=== PATIENT | female | born 1985 | race African-American/Black ===

== ENCOUNTER 2019-01-15 11:21 | Emergency (ER) | payer BC ==
[~2019-01-15] VITALS: Ht 177.8 cm; Wt 85.5 kg
[2019-01-15 11:51] VITALS: Ht 177.8 cm; Wt 85.5 kg
[2019-01-15] MEDS ORDERED: NITR-58 PO (15:22)
--- NOTE | 2019-01-15 15:33 | ERD ---
ER Documentation Chief Complaint Chief Complaint abdominal pain and vomiting this morning, dysuria x 5 days HPI 33-year-old female presents for vaginal discomfort and dysuria x5 days. She had some nausea this morning and vomiting in the morning. She states that she was intimate with her partner few days ago, customized vaginal area and developed the pain that she is feeling now subsequently. She denies any fevers. She admits to some mild cramping in the pelvic area. Denies vaginal bleeding. Denies blood in her urine. No significant past history. No other modifying factors noted, no treatments tried at home. ROS All systems reviewed and are negative except as per history of present illness. Medications Home Meds Active Scripts Nitrofurantoin Monohyd Macrocr* (Macrobid*) 100 Mg Capsr, 100 MG PO BID for dysuria for 5 Days, #10 CAP Prov:SEJAL MELARA DO 01/15/19 Allergies Allergies: Coded Allergies: Iodine (Verified Allergy, 01/15/19) PMhx/Soc Medical and Surgical Hx: pt denies Medical Hx, pt denies Surgical Hx Hx Psychiatric Problems: No Hx Miscellaneous Medical Probl: No Hx Alcohol Use: No Hx Substance Use: No Hx Tobacco Use: No Smoking Status: Never smoker FmHx Family History: No coronary disease Physical Exam Vitals Vital Signs Date Temp Pulse Resp B/P (MAP) Pulse Ox O2 O2 Flow FiO2 Time Delivery Rate 01/15/19 97.8 80 18 135/72 97 11:51 (93) Physical Exam Const: No acute distress Resp: Clear to auscultation bilaterally Cardio: Regular rate and rhythm, no murmurs Abd: Soft, non tender, non distended. Normal bowel sounds Skin: No petechiae or rashes Back: No midline or flank tenderness Ext: No cyanosis, or edema Neur: Awake and alert Psych: Normal Mood and Affect Results 24 hrs Laboratory Tests Test 01/15/19 14:40 01/15/19 14:41 Urine Color YELLOW Urine Clarity CLEAR Urine pH 7.0 Urine Specific [place] 1.019 Urine Ketones NEGATIVE mg/dL Urine Nitrite NEGATIVE mg/dL Urine Bilirubin NEGATIVE mg/dL Urine Urobilinogen NEGATIVE mg/dL Urine Leukocyte Esterase NEGATIVE Rafi/ul Urine Hemoglobin NEGATIVE mg/dL Urine Glucose NEGATIVE mg/dL Urine Total Protein NEGATIVE mg/dl POC Beta HCG, Qualitative POSITIVE Procedures/MDM Medical Decision Making: Differential diagnosis includes but not limited to acute gastritis, acute gastr oenteritis, appendicitis, cholecystitis, pancreatitis, nephrolithiasis, pyelonephritis, urinary tract infection Patient appeared well on physical exam. Nontoxic appearing. ED course: UA was negative for infection, there is no hematuria Urine test was positive Patient was informed of her urine result. Advised to follow-up with NURSE DISCHARGE PLANNER. Given the patient has dysuria, a urine culture was done and patient will be treated empirically for a urinary tract infection and Prescription(s): Patient given prescription for Macrobid. Patient advised to follow up with PCP in 1-2 days. Patient advised to return to ED for new or worsening symptoms. Patient stable on discharge from the ED. Disclaimer: Inadvertent spelling and grammatical errors are likely due to EHR/dictation software use and do not reflect on the overall quality of patient care. Also, please note that the electronic time recorded on this note does not necessarily reflect the actual time of the patient encounter. Departure Diagnosis: Primary Impression: Weeks of gestation: unspecified Qualified Codes: Z34.90 - Encounter for supervision of normal , unspecified, unspecified trimester Additional Impression: Dysuria Condition: Fair Patient Instructions: Dysuria, : Planning Your Exercise Routine Additional Instructions: Call your primary care doctor TOMORROW for an appointment during the next 1-2 days.See the doctor sooner or return here if your condition worsens before your appointment time. Follow up with rn lvn SEJAL MELARA DO January 15, 2019 15:33
[2019-01-15 16:02] VITALS: BP 126/76; PULSE 78; RESP 16
== END 2019-01-15 16:03 | disposition home or self-care (01) ==
LOC: FTE 11:21
DX: O23.40 Unspecified infection of urinary tract in pregnancy, unspecified trimester (principal); R10.2 Pelvic and perineal pain; Z34.90 Encounter for supervision of normal pregnancy, unspecified, unspecified trimester
CPT/HCPCS: 81003; 81025; 87086; Z7502; 99283

== ENCOUNTER 2019-01-22 10:35 | Emergency (ER) | payer BC ==
[~2019-01-22] VITALS: Ht 177.8 cm; Wt 87.0 kg
[~2019-01-22 10:35] MED LIST: NITR-58 PO
[2019-01-22 10:45] VITALS: BP 141/76; PULSE 68; RESP 18; Ht 177.8 cm; Wt 87.0 kg
[2019-01-22] MEDS ORDERED: ACETAMINOPHEN 325 MG TAB PO STA (10:57)
[2019-01-22] MEDS ORDERED: ACET500C5 PO (13:08)
--- NOTE | 2019-01-22 13:14 | ERD ---
ER Documentation Chief Complaint Chief Complaint vag bleed since yesterday , 3 weeks preg HPI 34-year-old female patient with no significant past medical history presents to the ED complaining of vaginal bleeding in her . Patient is a A4. States that her last menstruation was on December 14, 2018. Denies any chest pain, shortness of breath, nausea, vomiting, diarrhea, neck stiffness. Reports that she had to change 3 pads last night due to the vaginal bleeding. Describes her abdominal pain is achy and sharp and rates it a 6 out of 10. Denies any dysuri a, urgency, frequency, hematuria. ROS All systems reviewed and are negative except as per history of present illness. Medications Home Meds Active Scripts Acetaminophen* (Tylophen*) 500 Mg Capsule, 1 CAP PO Q6H PRN for PAIN AND OR ELEVATED TEMP, #20 CAP Prov:YENIFER SAGE PA-C 01/22/19 Nitrofurantoin Monohyd Macrocr* (Macrobid*) 100 Mg Capsr, 100 MG PO BID for dysuria for 5 Days, #10 CAP Prov:SEJAL MELARA DO 01/15/19 Allergies Allergies: Coded Allergies: iodine (Verified Allergy, Unknown, 01/15/19) PMhx/Soc Hx Psychiatric Problems: No Hx Miscellaneous Medical Probl: No Hx Alcohol Use: No Hx Substance Use: No Hx Tobacco Use: No FmHx Family History: No diabetes, No coronary disease Physical Exam Vitals Vital Signs Date Temp Pulse Resp B/P (MAP) Pulse Ox O2 O2 Flow FiO2 Time Delivery Rate 01/22/19 98.2 68 18 141/76 100 10:45 (97) Physical Exam Const: Uet-[id number], well-nourished. In no acute distress. Head: Atraumatic, normocephalic Eyes: Normal Conjunctiva without injection. No purulent discharge. ENT: Normal external ear, nose. Moist oropharynx without tonsillar exudates. Non-erythematous pharynx. Uvula midline. No drooling. No trismus. Neck: No cervical midline tenderness. Full range of motion. No meningismus. No cervical lymphadenopathy. No JVD. Resp: Clear to auscultation bilaterally. No wheezing, rhonchi, rales, or crackles. No accessory muscle use. No retractions. Cardio: Regular rate and rhythm. No murmurs, rubs or gallops. Abd: Soft, slight pelvic tenderness, non distended. Normal bowel sounds. No palpable masses. No rebound tenderness. No guarding. Negative McBurney's point. Negative psoas sign. Negative obturator sign. Skin: No petechiae or rashes Back: No midline tenderness. No CVA tenderness. Ext: No cyanosis, or edema. Neur: Awake and alert. Normal gait. Normal coordination. Psych: Normal Mood and Affect Results 24 hrs Laboratory Tests Test 01/22/19 11:21 White Blood Count 5.5 10^3/ul Red Blood Count 4.07 10^6/ul Hemoglobin 12.2 g/dl Hematocrit 38.4 % Mean Corpuscular Volume 94.3 fl Mean Corpuscular Hemoglobin 30.0 pg Mean Corpuscular Hemoglobin Concent 31.8 g/dl Red Cell Distribution Width 12.6 % Platelet Count 301 10^3/UL Mean Platelet Volume 10.7 fl Immature Granulocytes % 0.200 % Neutrophils % 58.9 % Lymphocytes % 31.0 % Monocytes % 6.4 % Eosinophils % 3.1 % Basophils % 0.4 % Nucleated Red Blood Cells % 0.0 /100WBC Immature Granulocytes # 0.010 10^3/ul Neutrophils # 3.2 10^3/ul Lymphocytes # 1.7 10^3/ul Monocytes # 0.4 10^3/ul Eosinophils # 0.2 10^3/ul Basophils # 0.0 10^3/ul Nucleated Red Blood Cells # 0.0 10^3/ul Urine Color YELLOW Urine Clarity SLIGHTLY CLOUDY Urine pH 8.0 Urine Specific [place] 1.020 Urine Ketones NEGATIVE mg/dL Urine Nitrite NEGATIVE mg/dL Urine Bilirubin NEGATIVE mg/dL Urine Urobilinogen NEGATIVE mg/dL Urine Leukocyte Esterase NEGATIVE Rafi/ul Urine Microscopic RBC > 182 /HPF Urine Microscopic WBC 4 /HPF Urine Squamous Epithelial Cells FEW /HPF Urine Mucus MODERATE /HPF Urine Hemoglobin 3+ mg/dL Urine Glucose NEGATIVE mg/dL Urine Total Protein NEGATIVE mg/dl Beta HCG, Quantitative < 2.4 mIU/ml Current Medications Medications Dose Sig/Fredi Start Time Status Last (Trade) Ordered Route PRN Stop Time Admin Dose Reason Admin 650 mg ONCE STAT 01/22/19 DC 01/22/19 Acetaminophen PO 10:57 11:22 (Tylenol 01/22/19 10:59 Tab) Procedures/MDM 34-year-old female patient who is a G7, presents the ED complaining of vaginal bleeding that started last night in her . Patient was diagnosed with a positive urine 7 days ago. An ultrasound, beta-hCG, CBC, type and RH, UA was ordered to evaluate patient. CBC: No evidence of severe infection or anemia Urine: No elevation in nitrites, leukocyte esterase, 3+ hematuria. Rh: O Positive No indication for Rhogam at this time. beta Hcg: < 2.4 IMPRESSION: No intrauterine gestation visualized. Ovaries not visualized. Differential diagnosis includes early , missed or ectopic . Follow-up ultrasound and HCG levels is recommended. Patient's bleeding symptoms have stabilized while in the department. Low suspicion for symptomatic anemia, ectopic , sepsis, PID, appendicitis, ovarian torsion, tubo-ovarian abscess, surgical abdomen, or other emergent conditions. Patient was educated that there is a risk for threatened . Patient did have a positive urine 7 days ago but was noted to have a beta-hCG of less than 2.4. Differentials include miscarriage however she is instructed to follow-up with PHLEBOTOMY SPECIALIST for repeat beta hCG for confirmation. Diagnosis: Vaginal bleeding and Discharge medications: Tylenol Patient to follow up with PHLEBOTOMY SPECIALIST in 2 days for further evaluation and treatment. Patient is to return sooner to the ED for any worsening symptoms. Patient's questions were answered. Patient understood and agreed with discharge plan. Disclaimer: Inadvertent spelling and grammatical errors are likely due to EHR/dictation software use and do not reflect on the overall quality of patient care. Also, please note that the electronic time recorded on this note does not necessarily reflect the actual time of the patient encounter. Departure Diagnosis: Primary Impression: Vaginal bleeding in Condition: Stable Patient Instructions: Bleeding During Early , Possible Miscarriage (Threatened ) Referrals: [facility]ARRAG[facility] (PCP) [facility] YOU HAVE RECEIVED A MEDICAL SCREENING EXAM AND THE RESULTS INDICATE THAT YOU DO NOT HAVE A CONDITION THAT REQUIRES URGENT TREATMENT IN THE EMERGENCY DEPARTMENT. FURTHER EVALUATION AND TREATMENT OF YOUR CONDITION CAN WAIT UNTIL YOU ARE SEEN IN YOUR DOCTORS OFFICE WITHIN THE NEXT 1-2 DAYS. IT IS YOUR RESPONSIBILITY TO MAKE AN APPOINTMENT FOR FOLOW-UP CARE. IF YOU HAVE A PRIMARY DOCTOR --you should call your primary doctor and schedule an appointment IF YOU DO NOT HAVE A PRIMARY DOCTOR YOU CAN CALL OUR PHYSICIAN REFERRAL HOTLINE AT IF YOU CAN NOT AFFORD TO SEE A PHYSICIAN YOU CAN CHOSE FROM THE FOLLOWING [facility] [address] [facility] [address] [facility] [address] [facility] [address] [facility] [address] [facility] [facility] [address] [facility] YOU HAVE RECEIVED A MEDICAL SCREENING EXAM AND THE RESULTS INDICATE THAT YOU DO NOT HAVE A CONDITION THAT REQUIRES URGENT TREATMENT IN THE EMERGENCY DEPARTMENT. FURTHER EVALUATION AND TREATMENT OF YOUR CONDITION CAN WAIT UNTIL YOU ARE SEEN IN YOUR DOCTORS OFFICE WITHIN THE NEXT 1-2 DAYS. IT IS YOUR RESPONSIBILITY TO MAKE AN APPOINTMENT FOR FOLOW-UP CARE. IF YOU HAVE A PRIMARY DOCTOR --you should call your primary doctor and schedule and appointment IF YOU DO NOT HAVE A PRIMARY DOCTOR YOU CAN CALL OUR PHYSICIAN REFERRAL HOTLINE AT . IF YOU CAN NOT AFFORD TO SEE A PHYSICIAN YOU CAN CHOSE FROM THE FOLLOWING [facility]: [facility] [address] [place] [address] [facility] [address] [place] [address] [facility] [address] [place] [address] [facility] Urgent Care 7 a.m.- 11 p.m. Every Day of the Week NO APPOINTMENT OR AUTHORIZATION NEEDED [facility] Hours: 8:00 am - 5:00 pm Additional Instructions: Call your PHLEBOTOMY SPECIALIST TOMORROW for an appointment during the next 2 days to repeat beta Hcg.See the doctor sooner or return here if your condition worsens before your appointment time - worsening vaginal bleeding, abdominal pain YENIFER SAGE PA-C January 22, 2019 13:14
== END 2019-01-22 13:42 | disposition home or self-care (01) ==
LOC: FTE 10:35
DX: O20.9 Hemorrhage in early pregnancy, unspecified (principal); Z3A.01 Less than 8 weeks gestation of pregnancy
CPT/HCPCS: 76801; 76817; 81001; 84702; 85025; 86900; 86901; Z7610; 36415